=== PATIENT | male | born 1970 | race African-American/Black ===

== ENCOUNTER 2020-01-15 16:48 | Outpatient (CLI) | payer OTHER, BC, SELFPAY ==
[2020-01-15 18:08] LABS: Add Urine Microscopic? YES; Amorphous Sediment Urine Few; Appearance Urine Cloudy (Clear); Bacteria Urine Trace /hpf; Bilirubin Urine Negative (Negative); Blood Urine Negative (Negative); Calcium Oxalate Crystals Urine Present /hpf; Color Urine Yellow (Yellow); Glucose Urine UA Negative (Negative); Ketones Urine Negative (Negative); Leukocyte Esterase Ur Negative LEU/UL (NEGATIVE); Mucus Urine Rare /lpf; Nitrate Urine Negative (Negative); Protein Urine Negative (Negative); RBC Urine 0-2 /hpf (0-2); Specific Grav Ur 1.016 (1.001-1.035); Squamous Epithelial Cell Urine Rare /hpf (Few); Urobilinogen Urine Negative mg/dL (<2.0)
[2020-01-15 18:14] LABS: Alanine Aminotransferase 33 U/L (4-50); Albumin Level 4.4 g/dL (3.5-5.1); Alkaline Phosphatase 99 U/L (38-126); Aspartate Amino Transferase 28 U/L (17-59); Bilirubin,Total 0.3 mg/dL (0.2-1.3); Blood Urea Nitrogen 10 mg/dL (9-20); Carbon Dioxide 28 mmol/L (22-30); Chloride 100 mmol/L (98-107); Cholesterol 198 mg/dL (0-200); Estimated Glomerular Filt Rate > 60; Glucose 116 mg/dL (75-110); HDL Direct 38 mg/dL; Potassium 3.4 mmol/L (3.4-5.0); Sodium 138 mmol/L (137-145); Triglycerides 143 mg/dL (<150)
[2020-01-15 18:25] LABS: LDL Cholesterol Direct 130 mg/dL
[2020-01-15 18:45] LABS: Prostate Specific Antigen 0.6 ng/mL (< OR = 4.0)
== END 2020-01-15 16:49 | disposition home or self-care (01) ==
PROVIDERS: PCP Internal Medicine; Visit Provider Internal Medicine
DX: N40.2 Nodular prostate without lower urinary tract symptoms (principal); I10 Essential (primary) hypertension
CPT/HCPCS: 36415; 80053; 80061; 81001; 84153

== ENCOUNTER 2020-02-08 07:25 | Outpatient (CLI) | payer OTHER, BC, SELFPAY ==
--- NOTE | ~2020-02-08 | MR_ITS ---
EXAMINATION: MR MRCP wo/w con/w 3D wo ind DATE: 02/08/2020 08:59 INDICATION: Intraductal papillary mucinous neoplasm TECHNIQUE: Magnetic resonance imaging (MRI) of the abdomen was performed without and with intravenous contrast. Sequences included coronal T2-weighted SS-FSE ARC, coronal T2-weighted FS SS-FSE, coronal T2-weighted 2D FS FIESTA, Water:Coronal LAVA-Flex, sagittal T2-weighted SS-FSE ARC, axial SSFSE ARC, axial 3D DualEcho, axial DWI B=600, axial T1-weighted LAVA, FAT:Coronal LAVA-Flex, and coronal in and opposed phase LAVA-Flex. Thick-slab T2-weighted FRFSE-XL images were obtained for magnetic resonance cholangiopancreatography (MRCP). Maximum intensity projection 3-D reconstructions of the volumetric data were created by the technologist. Postcontrast sequences included a time course of axial T1-weig hted LAVA, FAT:Coronal LAVA-Flex, coronal in and opposed phase LAVA-Flex, and Water:Coronal LAVA-Flex . COMPARISON: Ultrasound dated 03/22/2018 CONTRAST: Multihance, 17 cc FINDINGS: ABDOMEN MRI: There is an 8 mm slightly T1 hypointense and T2 hyperintense lesion of liver segment V w hich demonstrates early arterial enhancement and persistent enhancement into the delayed postcontrast phases. No additional liver lesion is identified. The spleen, gallbladder, and adrenal glands are no rmal. Cysts of the kidneys measure up to 4.5 cm on the right. There are no pathologically enlarged ab dominal lymph nodes. There is a 4 mm T2 hyperintense lesion in the body of the pancreas without defin ite communication with the main pancreatic duct. No suspicious enhancement is identified. ABDOMEN MRCP: There is no intrahepatic or extrahepatic biliary dilatation. No stones or stricture tiffani ntified in the common bile duct. The pancreatic duct is normal in course and caliber. IMPRESSION: 1. 4 mm cystic lesion in the body of the pancreas, possibly a side branch intraductal papillary mucin ous neoplasm (IPMN). Recommend follow-up MRI without and with contrast in one year. 2. Stable lesion of the right hepatic lobe, likely a flash filling hemangioma or focal nodular hyperp lasia. Reviewed, dictated and finalized at location B. IMPRESSION: 1. 4 mm cystic lesion in the body of the pancreas, possibly a side branch intra ductal papillary mucinous neoplasm (IPMN). Recommend follow-up MRI without and with contrast in one year. 2. Stable lesion of the right hepatic lobe, likely a flash filling hemangioma o r focal nodular hyperplasia.
[2020-02-08 08:00] LABS: Estimated Glomerular Filt Rate > 60
== END 2020-02-08 07:26 | disposition home or self-care (01) ==
PROVIDERS: PCP Internal Medicine; Visit Provider Internal Medicine
DX: D13.6 Benign neoplasm of pancreas (principal)
CPT/HCPCS: 36415; 74183; 76376; A9577

== ENCOUNTER 2020-05-16 11:17 | Emergency (ER) | payer OTHER, BC, SELFPAY ==
--- NOTE | ~2020-05-16 | XR_ITS ---
EXAMINATION: XR ankle RT min 3V INDICATION: Right ankle pain TECHNIQUE: Four views of the right ankle are obtained. COMPARISON: 10/09/2007 FINDINGS: Bone alignment is normal. There is no fracture. Mild soft tissue swelling is seen posterior to the ankle. IMPRESSION: 1. No acute osseous abnormality. Reviewed, dictated and finalized at location A.
[2020-05-16 11:27] VITALS: BP 116/81; PULSE 90; RESP 16; TEMP 36; O2SAT 100
[2020-05-16 11:28] VITALS: BP 116/81; PULSE 90; RESP 16; TEMP 36; O2SAT 100
--- NOTE | 2020-05-16 11:44 | ED.LOWEXIN ---
HPI - Extremity Injury (Lower) General Chief Complaint: Extremity Injury, Lower Stated Complaint: rt achilles pain Time Seen by Provider: 05/16/20 11:44 Source: patient and RN notes reviewed Mode of arrival: ambulatory Limitations: no limitations History of Present Illness HPI Narrative: 49-year-old male presents with concern for pain to his posterior ankle, lower calf. Reports pain came on suddenly while he was playing pickle ball just prior to arrival. Reports he felt a pop in his ankle, and it felt like he got kicked in the calf. Reports pain with extension and flexion right foot. complaint: ankle injury Related Data Home Medications Medication Instructions Recorded Confirmed amlodipine 05/16/20 armodafinil mg PO 05/16/20 travoprost drp 05/16/20 Allergies Allergy/AdvReac Type Severity Reaction Status Date / Time No Known Allergies Allergy Mild Verified 10/09/07 08:01 Review of Systems Review of Systems: Narrative: CONSTITUTIONAL: Denies malaise, chills, sweats, or fever. CARDIOVASCULAR: Denies chest pain, palpitations, or edema. RESPIRATORY: Denies cough or dyspnea. SKIN: Denies skin, bruising, redness MUSCULOSKELETAL: Reports right lower calf pain, posterior ankle pain NEUROLOGIC: Denies numbness, weakness All systems reviewed & are unremarkable except as noted in HPI and below PMFSH Comments At time of signature, agree with nursing past medical, surgical, social and family history. There is no relevant family history pertinent to the presenting complaint Exam Narrative: Exam Narrative: GENERAL: Well-appearing, well-nourished, and in no acute distress. HEAD: Normocephalic, atraumatic. EYES: PERRLA, conjunctivae clear NECK: Supple. CHEST: Speaks in full sentences. No respiratory distress. HEART: Regular rate and rhythm. Normal and equal peripheral pulses. EXTREMITIES: Right ankle, foot, digits have normal sensation, limited range of motion. No edema or ecchymosis. Decreased strength with ankle flexion and extension. Normal sensation with sensitivity to light touch and pain. Lower posterior calf and ankle tenderness. No open wounds, no skin tenting, no devitalized tissue or atrophy, no trophic changes, no obvious deformity, alignment normal, nearby joints and structures intact. Distal pulses palpable and equal bilaterally, skin warm, dry, pink. Capillary refill less than 3 seconds. Wilkinson's test positive for possible Achilles tendon rupture SKIN: Warm, dry, no rash. NEURO: Alert and oriented x3. PSYCH: Normal mood and affect Course Course Emergency Course: Patient is aware of diagnosis, understands and agrees to treatment plan. Anticipatory guidance given. Patient agrees to follow-up as directed and is aware of reasons to seek care at the emergency department. Portions of this record may have been created with voice recognition software Vital Signs Vital signs: Vital Signs Temperature 96.8 F L 05/16/20 11:27 Pulse Rate 90 05/16/20 11:27 Respiratory Rate 16 05/16/20 11:27 Blood Pressure 116/81 05/16/20 11:27 Pulse Oximetry 100 05/16/20 11:27 Temperature 96.8 F L 05/16/20 11:28 Pulse Rate 90 05/16/20 11:28 Respiratory Rate 16 05/16/20 11:28 Blood Pressure 116/81 05/16/20 11:28 Pulse Oximetry 100 05/16/20 11:28 Reviewed. MDM - Extremity Injury (Lower) MDM Narrative Medical decision making narrative: Patients injury and pain is consistent with musculoskeletal etiology. No signs of neurological or vascular compromise on exam. Compartments and tissues are soft without signs of compartment syndrome. Pain is felt appropriate for further evaluation on an outpatient basis. Imaging Data My impression: Images reviewed, interpreted by radiologist, agree, see report. Radiologist's impression: EXAMINATION: XR ankle RT min 3V INDICATION: Right ankle pain TECHNIQUE: Four views of the right ankle are obtained. COMPARISON: 10/09/2007 FINDINGS: Bone alignment is nor
== END 2020-05-16 12:06 | disposition home or self-care (01) ==
PROVIDERS: Emergency Provider Nurse Practitioner; PCP Internal Medicine
DX: S86.001A Unspecified injury of right Achilles tendon, initial encounter (principal); X58.XXXA Exposure to other specified factors, initial encounter; I10 Essential (primary) hypertension; H40.9 Unspecified glaucoma
CPT/HCPCS: 73610; 99213; G0463

== ENCOUNTER → 2020-09-22 02:25 | Outpatient (CLI) | payer OTHER, BC, SELFPAY ==
[2020-09-22 22:47] LABS: SARS-CoV-2 RNA PCR Negative
== END ==
PROVIDERS: PCP Internal Medicine; Visit Provider Internal Medicine Gastroenterology
DX: Z01.812 Encounter for preprocedural laboratory examination (principal); Z20.822 Contact with and (suspected) exposure to COVID-19
CPT/HCPCS: C9803; U0003; U0005

== ENCOUNTER 2020-09-25 00:40 | Day surgery (SDC) | payer OTHER, BC, SELFPAY ==
[2020-08-18 16:17] VITALS: BMI 28.0
--- NOTE | 2020-08-25 13:38 | PC.NURSE ---
SPOKE WITH PATIENT REGARDING NEW TESTING DATES AND TIMES, REVIEWED HISTORY AND MEDICATIONS DONE FROM 6 DAYS AGO AND NO CHANGES MADE.
--- NOTE | 2020-09-17 08:49 | PC.NURSE ---
Patient states no changes in health history or medications. Patient aware of times changes.
[2020-09-25 09:59] VITALS: BP 115/99; PULSE 65; RESP 20; TEMP 36.1; O2SAT 95; BMI 30.8
[2020-09-25] MEDS: LACTATED RINGERS 1,000 ML 150 ML IV CONT (10:23)
--- NOTE | 2020-09-25 10:33 | WPDANESEPPF ---
Anes - Initial Pre Proc Eval Procedure: Operation Date: 09/25/20 11:15 Proposed Procedures p Screening Colonoscopy - Darrell Hugo MD Date/Time: 09/25/20 10:33 Surgeon: Darrell Hugo MD Pre Op Diagnosis: Neoplasm Screening Patient Data Age: 50 Gender: M Height: 5 ft 9 in Weight: 94.6 kg Last Vital Signs Temp 36.1 C L 09/25/20 09:59 Pulse 65 09/25/20 09:59 Resp 20 09/25/20 09:59 BP 115/99 H 09/25/20 09:59 Pulse Ox 95 09/25/20 09:59 Allergies Allergy/AdvReac Type Severity Reaction Status Date / Time No Known Allergies Allergy Mild Verified 09/25/20 09:58 Home Medications Medication Instructions Recorded Confirmed Type amlodipine 10 mg PO DAILY 05/16/20 08/25/20 History travoprost 1 drp OPHTHALMIC (EYE) DAILY 05/16/20 08/25/20 History ascorbic acid (vitamin C) 500 mg PO DAILY 09/17/20 09/17/20 History calcium citrate-vitamin D3 1 tablet PO DAILY 09/17/20 09/17/20 History [Calcitrate-Vitamin D] omega 2-sdz-qts-fish oil [Fish Oil] 1 cap PO DAILY 09/17/20 09/17/20 History Patient hx anesthesia problems: none Family hx anesthesia problems: none [facility] Past Medical History Medical History Hypertension MIRELLA (obstructive sleep apnea) Social History Social History Smoking status: Never smoker Alcohol intake: never Substance use type: does not use Living arrangements: with family Spiritual care concerns: No Anes - Eval Final PreProcedure Day of Procedure 09/25/20 10:33 Patient weight: obese Heart: regular rate and rhythm Lungs: clear to auscultation Airway: Mallampati scale class II Neurological: alert and oriented Last oral intake: >/= 8 hours ASA classification: III Emergent: no Anesthetic plan: proceed Anesthesia type and monitoring: general GIVS and standard monitoring Informed Consent: The patient's anesthetic plan and its attendant risks and benefits were discussed with the patient/family/POA. Questions were solicited and answers provided to the satisfaction of the patient/family/POA.
--- NOTE | 2020-09-25 11:04 | PM.HPGS ---
History of Present Illness History of Present Illness Consent: Risks, benefits, and alternatives have been discussed and questions answered. Patient agrees to proceed with procedure. Chief complaint: Neoplasm Screening Narrative: Jesse Magana is a 50 year old male here for first screening colonoscopy Review of Systems Constitutional: Constitutional: Denies headache(s) and Denies weakness Eyes: Eyes: Denies blurry vision ENT: Reports Normal hearing present, Denies headache(s) and Denies neck pain Cardiovascular: Cardiovascular: Denies chest pain and Denies dyspnea Respiratory: Respiratory: Denies dyspnea Gastrointestinal: Gastrointestinal: Reports no additional gastrointestinal complaints Genitourinary: Genitourinary: Denies dysuria Musculoskeletal: Musculoskeletal: Denies neck pain Integumentary/Breasts: Skin/Breast: Denies dry skin Neurologic: Reports Normal hearing present, Denies headache(s) and Denies weakness Psychiatric: Psychiatric: Denies anxiety Endocrine: Endocrine: Denies change in body appearance Hematologic/Lymphatic: Hematologic/Lymphatic: Denies easy bleeding Allergic/Immunologic: Allergic/Immunologic: Denies urticaria PMFSH Past Medical History Medical History Hypertension MIRELLA (obstructive sleep apnea) Social History Social History Smoking status: Never smoker Alcohol intake: never Substance use type: does not use Living arrangements: with family Spiritual care concerns: No Meds Home Medications and Allergies Home Medications Medication Instructions Recorded Confirmed Type amlodipine 10 mg PO DAILY 05/16/20 08/25/20 History travoprost 1 drp OPHTHALMIC (EYE) DAILY 05/16/20 08/25/20 History ascorbic acid (vitamin C) 500 mg PO DAILY 09/17/20 09/17/20 History calcium citrate-vitamin D3 1 tablet PO DAILY 09/17/20 09/17/20 History [Calcitrate-Vitamin D] omega 8-noi-wdx-fish oil [Fish Oil] 1 cap PO DAILY 09/17/20 09/17/20 History Allergies Allergy/AdvReac Type Severity Reaction Status Date / Time No Known Allergies Allergy Mild Verified 09/25/20 09:58 Vital Signs Vital Signs - 24 hr 09/25/20 09:59 Temperature 97 F L Pulse Rate 65 Respiratory Rate 20 Blood Pressure 115/99 H Pulse Oximetry 95 Exam Const: General: comfortable and no acute distress HENMT: General nose exam: Normal nares present Eyes: General: appearance normal, both eyes and all related structures Neck: Neck: no JVD Resp: Auscultation: clear to auscultation bilaterally Cardio: Rate: regular rate Rhythm: regular rhythm GI: Inspection: non-distended GI Palp: Yes Soft to palpation Skin: General skin exam: normal color Neuro: General: gait normal Speech: normal speech Extrem: General: normal to inspection Psych: Mental Status: mental status grossly normal Assessment and Plan Assessment and plan (1) Colon cancer screening: Code(s): Z12.11 - Encounter for screening for malignant neoplasm of colon Status: Acute Assessment and Plan: proceed with colonoscopy
[2020-09-25 11:20] VITALS: BP 120/75; PULSE 77; RESP 20; O2SAT 96
[2020-09-25 11:30] VITALS: BP 115/76; PULSE 64; RESP 15; O2SAT 97
[2020-09-25 11:40] VITALS: BP 119/74; PULSE 67; RESP 19; O2SAT 100
== END 2020-09-25 12:15 | disposition home or self-care (01) ==
PROVIDERS: PCP Internal Medicine; Visit Provider Internal Medicine Gastroenterology
PROC: 0DJD8ZZ Inspection of Lower Intestinal Tract, Via Natural or Artificial Opening Endoscopic (ICD-10-PCS; CPT 45378; principal; 2020-09-25 11:15)
DX: Z12.11 Encounter for screening for malignant neoplasm of colon (principal); I10 Essential (primary) hypertension; G47.33 Obstructive sleep apnea (adult) (pediatric)
CPT/HCPCS: 45378; J2704; J7120

== ENCOUNTER 2021-03-25 06:37 | Outpatient (CLI) | payer OTHER, BC, SELFPAY ==
--- NOTE | ~2021-03-25 | MR_ITS ---
EXAMINATION: MR MRCP wo/w con/w 3D wo ind DATE: 03/25/2021 07:55 INDICATION: Intraductal papillary mucinous neoplasm TECHNIQUE: Magnetic resonance imaging (MRI) of the abdomen was performed without and with intravenous contrast. Sequences included coronal T2-weighted SS-FSE ARC, coronal T2-weighted FS SS-FSE, coronal T2-weighted 2D FS FIESTA, Water:Coronal LAVA-Flex, sagittal T2-weighted SS-FSE ARC, axial SSFSE ARC, axial 3D DualEcho, axial DWI B=600, axial T1-weighted LAVA, FAT:Coronal LAVA-Flex, and coronal in and opposed phase LAVA-Flex. Thick-slab T2-weighted FRFSE-XL images were obtained for magnetic resonance cholangiopancreatography (MRCP). Maximum intensity projection 3-D reconstructions of the volumetric data were created by the technologist. Postcontrast sequences included a time course of axial T1-weig hted LAVA, FAT:Coronal LAVA-Flex, coronal in and opposed phase LAVA-Flex, and Water:Coronal LAVA-Flex . COMPARISON: 02/08/2020 CONTRAST: Multihance, 18 cc FINDINGS: ABDOMEN MRI: The spleen, gallbladder, and adrenal glands are normal. There is a 1.7 cm T1 isointense, T2 isointense lesion in liver segment V which demonstrates early enhancement and is isointense on th e portal venous phase and delayed phase. Findings are consistent with focal nodular hyperplasia or fl isaiah filling hemangioma. There are multiple simple cysts of the kidneys which measure up to 4.7 cm on the right. Hemorrhagic cysts of the left kidney measure up to 9 mm. There are no pathologically enlar ged abdominal lymph nodes. There is a 2 mm T2 hyperintense lesion in the body of the pancreas without definite communication with the main pancreatic duct which is decreased in size compared to the prio r examination. This is best appreciated on the 3-D coronal MRCP images. ABDOMEN MRCP: There is no intrahepatic or extrahepatic biliary dilatation. No biliary stones or stric ture are identified. The pancreatic duct is normal in course and caliber. IMPRESSION: 1. Cystic lesion in the body of the pancreas with interval decrease in size, most likely benign intra ductal papillary mucinous neoplasm (IPMN). Reviewed, dictated and finalized at location B. IMPRESSION: 1. Cystic lesion in the body of the pancreas with interval decrease in size, mo st likely benign intraductal papillary mucinous neoplasm (IPMN).
[2021-03-25 07:11] LABS: Estimated Glomerular Filt Rate > 60
[2021-03-25 08:54] LABS: Add Urine Microscopic? YES; Appearance Urine Clear (Clear); Bilirubin Urine Negative (Negative); Blood Urine Negative (Negative); Color Urine Yellow (Yellow); Glucose Urine UA Negative (Negative); Ketones Urine Negative (Negative); Leukocyte Esterase Ur Negative LEU/UL (NEGATIVE); Mucus Urine Few /lpf; Nitrate Urine Negative (Negative); Protein Urine Negative (Negative); Squamous Epithelial Cell Urine Rare /hpf (Few); Urobilinogen Urine Negative mg/dL (<2.0); WBC Urine 0-3 /hpf (0-3)
[2021-03-25 09:02] LABS: Alanine Aminotransferase 40 U/L (4-50); Alkaline Phosphatase 78 U/L (38-126); Anion Gap 6 mmol/L (8-16); Aspartate Amino Transferase 49 U/L (17-59); Bilirubin,Total 0.8 mg/dL (0.2-1.3); Blood Urea Nitrogen 12 mg/dL (9-20); Calcium 9.1 mg/dL (8.4-10.2); Carbon Dioxide 30 mmol/L (22-30); Chloride 103 mmol/L (98-107); Cholesterol 169 mg/dL (0-200); Estimated Glomerular Filt Rate > 60; Glucose 99 mg/dL (65-110); HDL Direct 41 mg/dL; Potassium 3.6 mmol/L (3.4-5.0); Sodium 139 mmol/L (137-145); Triglycerides 85 mg/dL (<150)
[2021-03-25 09:12] LABS: LDL Cholesterol Direct 95 mg/dL
[2021-03-25 09:32] LABS: Prostate Specific Antigen 0.8 ng/mL (< OR = 4.0)
[2021-03-25 09:48] LABS: Specific Grav Ur 1.041 (1.001-1.035)
== END 2021-03-25 06:38 | disposition home or self-care (01) ==
PROVIDERS: PCP Internal Medicine; Visit Provider Internal Medicine
DX: Z12.5 Encounter for screening for malignant neoplasm of prostate (principal); I10 Essential (primary) hypertension; K86.2 Cyst of pancreas; D49.0 Neoplasm of unspecified behavior of digestive system
CPT/HCPCS: 74183; 76376; 80053; 80061; 81001; 84153; A9577; G0103

== ENCOUNTER 2021-04-03 08:28 | Emergency (ER) | payer OTHER, BC, SELFPAY ==
[2021-04-03 08:37] VITALS: BP 127/79; PULSE 71; RESP 16; TEMP 36.3; O2SAT 100
--- NOTE | 2021-04-03 08:53 | ED.URI ---
HPI - URI/Sore Throat General Chief Complaint: Upper Respiratory Infection Stated Complaint: Sore Throat Time Seen by Provider: 04/03/21 08:55 Source: patient Mode of arrival: ambulatory Limitations: no limitations History of Present Illness HPI Narrative: Jesse Magana is a 50 yo male with a PMH of HTN, high cholesterol, glaucoma, comes to [facility] with sore throat that started 2 days ago. His daughter has been diagnosed with strep Related Data Home Medications Medication Instructions Recorded Confirmed amlodipine 10 mg PO DAILY 05/16/20 08/25/20 travoprost 1 drp OPHTHALMIC (EYE) DAILY 05/16/20 08/25/20 ascorbic acid (vitamin C) 500 mg PO DAILY 09/17/20 09/17/20 calcium citrate-vitamin D3 1 tablet PO DAILY 09/17/20 09/17/20 [Calcitrate-Vitamin D] omega 1-qke-ora-fish oil [Fish Oil] 1 cap PO DAILY 09/17/20 09/17/20 Allergies Allergy/AdvReac Type Severity Reaction Status Date / Time No Known Allergies Allergy Mild Verified 09/25/20 09:58 Review of Systems Review of Systems: CONSTITUTIONAL: Denies fever, chills, sweats. EYES: Denies visual changes, redness, discharge. ENT: Denies rhinorrhea, congestion, has sore throat, otalgia. CARDIOVASCULAR: Denies chest pain, palpitations, edema. RESPIRATORY: Denies dyspnea, wheezing, cough GASTROINTESTINAL: Denies abdominal pain, nausea, vomiting, diarrhea. GENITOURINARY: Denies dysuria, hematuria, abnormal discharge SKIN: Denies rash or itching. NEUROLOGIC: Denies numbness, or focal weakness. PSYCHIATRIC: Denies anxiety or depression. PMFSH Past Medical History Medical History (Updated 04/03/21 @ 09:07 by Rae Scott CNP) Colon cancer screening Glaucoma High cholesterol Hypertension MIRELLA (obstructive sleep apnea) Social History Social History Smoking status: Never smoker Alcohol intake: never Substance use type: does not use Spiritual care concerns: No Comments At time of signature, I agree with nursing past medical, surgical, social and family history. There is no relevant family history pertinent to the presenting complaint. Exam Narrative: GENERAL: This is a well-nourished, well-developed patient, in mild distress. HEAD: normocephalic, atraumatic. EYES: Sclera clear/white. Vision is grossly intact. EARS: External ears normal, Hearing grossly intact. NOSE: External nose normal without nasal discharge, nares without redness, no rhinorrhea. THROAT: Mucous membranes moist, posterior pharynx erythema with swelling on the left NECK: Neck supple, mild tender CARDIOVASCULAR: Regular rate and rhythm without murmurs, gallops, or rubs. RESPIRATORY: Clear to auscultation. Breath sounds equal bilaterally. No wheezes, rales, or rhonchi. GASTROINTESTINAL: Abdomen soft, SKIN: warm, intact with no suspicious lesions or rash, good texture and turgor. NEURO: awake, alert, and oriented to person, place and time. There were no obvious focal neurologic abnormalities. Steady gait EXTREMITIES: Normal range of motion. BACK: Nontender without deformity Course Course Emergency Course: Comes to urgent care today with sore throat x2 days Rapid strep is negative; sent for culture Given prednisone and amoxicillin Practice good handwashing and do not share utensils or towels for the first 24 hours of medication Vital Signs Vital signs: Vital Signs Temperature 97.3 F L 04/03/21 08:37 Pulse Rate 71 04/03/21 08:37 Respiratory Rate 16 04/03/21 08:37 Blood Pressure 127/79 04/03/21 08:37 Pulse Oximetry 100 04/03/21 08:37 Temperature 97.3 F L 04/03/21 08:37 Pulse Rate 71 04/03/21 08:37 Respiratory Rate 16 04/03/21 08:37 Blood Pressure 127/79 04/03/21 08:37 Pulse Oximetry 100 04/03/21 08:37 MDM - URI/Sore Throat Differential Diagnosis Differential diagnosis: Likely upper respiratory infection, bronchitis, influenza, pharyngitis and other Lab Data Labs: Strep Sc
== END 2021-04-03 09:13 | disposition home or self-care (01) ==
PROVIDERS: Emergency Provider Nurse Practitioner; PCP Internal Medicine
DX: J02.9 Acute pharyngitis, unspecified (principal); I10 Essential (primary) hypertension
CPT/HCPCS: 87081; 87880; 99213; G0463

== ENCOUNTER 2021-04-16 07:56 | Outpatient (CLI) | payer OTHER, BC, SELFPAY ==
[2021-04-16 08:50] LABS: Add Urine Microscopic? NO; Appearance Urine Clear (Clear); Bilirubin Urine Negative (Negative); Blood Urine Negative (Negative); Color Urine Yellow (Yellow); Glucose Urine UA Negative (Negative); Ketones Urine Negative (Negative); Leukocyte Esterase Ur Negative LEU/UL (Negative); Nitrate Urine Negative (Negative); Protein Urine Negative (Negative); Specific Grav Ur 1.016 (1.001-1.035); Urobilinogen Urine Negative mg/dL (<2.0)
== END 2021-04-16 07:57 | disposition home or self-care (01) ==
PROVIDERS: PCP Internal Medicine; Visit Provider Internal Medicine
DX: R31.29 Other microscopic hematuria (principal)
CPT/HCPCS: 81003

== ENCOUNTER 2021-09-25 08:09 | Emergency (ER) | payer OTHER, BC, SELFPAY ==
--- NOTE | ~2021-09-25 | XR_ITS ---
EXAMINATION: XR foot RT 2V DATE: 09/25/2021 08:41 INDICATION: Right Achilles tendon injury. TECHNIQUE: 2 views of right foot were obtained. COMPARISON: Right ankle radiographs 05/16/2020 FINDINGS: Bone alignment is normal. No fracture. There is mild osteoarthritis of first metatarsophala ngeal joint and some of the interphalangeal joints and midfoot joints. There is an enthesophyte at pl gallo aspect of calcaneal tuberosity. There is soft tissue swelling in the area of Achilles tendon. IMPRESSION: 1. Soft tissue swelling in the area of Achilles tendon. 2. Mild polyarticular osteoarthritis. Reviewed, dictated and finalized at location A. ER SALVAGER
--- NOTE | 2021-09-25 08:20 | ED.LOWEXIN ---
HPI - Extremity Injury (Lower) General Chief Complaint: Extremity Injury, Lower Stated Complaint: right leg pain Time Seen by Provider: 09/25/21 08:15 Source: patient and RN notes reviewed History of Present Illness HPI Narrative: Patient is a 51-year-old male who presents the urgent care with complaints of right Achilles pain. Patient states that he has had a mild increase in swelling. 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 Patient states that he had surgery approximately 1 year ago and has not had much issue in the last 6 months. States that it does not feel like it did when he first ruptured the Achilles . Patient has not done anything [id number] for his pain. Patient ambulates without difficulty. No other acute complaints. No acute distress noted. Patient aware of the plan of care. Some parts of this dictation were generated by voice recognition software and may contain typographical and/or grammatical inaccuracies. Related Data Home Medications Medication Instructions Recorded Confirmed amlodipine 10 mg PO DAILY 05/16/20 09/25/21 travoprost 1 drp OPHTHALMIC (EYE) DAILY 05/16/20 09/25/21 ascorbic acid (vitamin C) 500 mg PO DAILY 09/17/20 09/25/21 calcium citrate-vitamin D3 1 tablet PO DAILY 09/17/20 09/25/21 [Calcitrate-Vitamin D] omega 0-cps-hbb-fish oil [Fish Oil] 1 cap PO DAILY 09/17/20 09/25/21 hydrochlorothiazide 25 mg PO DAILY 09/25/21 09/25/21 Allergies Allergy/AdvReac Type Severity Reaction Status Date / Time No Known Allergies Allergy Mild Verified 09/25/21 08:33 Review of Systems Review of Systems: CONSTITUTIONAL: Denies fever, chills, or sweats. EYES: Denies visual changes, redness, or discharge. ENT: Denies rhinorrhea, congestion, sore throat, or otalgia. CARDIOVASCULAR: Denies chest pain, palpitations, or edema. RESPIRATORY: Denies cough or dyspnea. GASTROINTESTINAL: Denies abdominal pain, nausea, vomiting, or diarrhea. GENITOURINARY: Denies dysuria or hematuria. SKIN: Denies rash or itching. MUSCULOSKELETAL: Reports of right Achilles pain NEUROLOGIC: Denies headache, numbness, or weakness. All other systems reviewed are negative, except as documented in HPI. [facility] Past Medical History Medical History (Updated 09/25/21 @ 09:12 by DEEPALI Omalley) Colon cancer screening Glaucoma High cholesterol Hypertension MIRELLA (obstructive sleep apnea) Social History Social History Smoking status: Never smoker Alcohol intake: never Substance use type: does not use Spiritual care concerns: No Comments At the time of my signature, I reviewed and agree with the nursing past medical, surgical, social, and family history. There is no relevant family history pertinent to the patient complaint. Exam Narrative: GENERAL: This is a well-nourished, well-developed patient, in no apparent distress. HEAD: normocephalic, atraumatic. EYES: PERRL. Sclera clear/white. Vision is grossly intact. EARS: External ears normal NOSE: External nose normal with no obvious nasal discharge, nares without redness, no rhinorrhea. THROAT: Mucous membranes moist NECK: Neck supple, non-tender without lymphadenopathy, masses or thyromegaly. CARDIOVASCULAR: Regular rate and rhythm without murmurs, gallops, or rubs. RESPIRATORY: Clear to auscultation. Breath sounds equal bilaterally. No wheezes, rales, or rhonchi. SKIN: warm, intact with no suspicious lesions or rash, good texture and turgor. NEURO: awake, alert, and oriented to person, place and time. There were no obvious focal neurologic abnormalities. EXTREMITIES: Mild edema to the right Achilles region. Range of motion to right lower extremity within normal limits. Flexion within normal limits. Positive strong right pedal pulse with capillary refill less than 2 seconds. Course Course Level of Care: Expr
[2021-09-25 08:21] VITALS: BP 132/94; PULSE 82; RESP 16; TEMP 36.4; O2SAT 99
[2021-09-25 08:22] VITALS: BP 132/94; PULSE 82; RESP 16; TEMP 36.4; O2SAT 99
== END 2021-09-25 09:15 | disposition home or self-care (01) ==
PROVIDERS: Emergency Provider Nurse Practitioner Family
DX: M77.51 Other enthesopathy of right foot and ankle (principal); H40.9 Unspecified glaucoma; E78.00 Pure hypercholesterolemia, unspecified; I10 Essential (primary) hypertension; G47.33 Obstructive sleep apnea (adult) (pediatric)
CPT/HCPCS: 73620; 99213; G0463

== ENCOUNTER 2022-12-27 14:03 | Outpatient (CLI) | payer OTHER, BC, SELFPAY ==
[2022-12-27 14:40] LABS: Appearance Urine Clear (Clear); Bilirubin Urine Negative (Negative); Blood Urine Negative (Negative); Color Urine Yellow (Yellow); Glucose Urine UA Negative (Negative); Ketones Urine Negative (Negative); Leukocyte Esterase Ur Negative LEU/UL (NEGATIVE); Nitrate Urine Negative (Negative); Protein Urine Negative (Negative); Specific Grav Ur 1.024 (1.001-1.035); pH Urine 5.5 (5.0-9.0)
[2022-12-27 14:45] LABS: Add Urine Microscopic? NO
[2022-12-27 14:55] LABS: Alanine Aminotransferase 34 U/L (6-50); Albumin Level 4.5 g/dL (3.5-5.1); Alkaline Phosphatase 83 U/L (38-126); Anion Gap 9 mmol/L (8-16); Aspartate Amino Transferase 32 U/L (17-59); Bilirubin,Total 0.5 mg/dL (0.2-1.3); Blood Urea Nitrogen 16 mg/dL (9-20); Calcium 9.1 mg/dL (8.4-10.2); Carbon Dioxide 28 mmol/L (22-30); Chloride 101 mmol/L (98-107); Cholesterol 181 mg/dL (0-200); Estimated Glomerular Filt Rate > 60; Glucose 133 mg/dL (65-110); HDL Direct 39 mg/dL; Potassium 3.3 mmol/L (3.4-5.0); Sodium 138 mmol/L (137-145); Triglycerides 116 mg/dL (<150)
[2022-12-27 15:05] LABS: LDL Cholesterol Direct 114 mg/dL
[2022-12-27 15:25] LABS: Prostate Specific Antigen 0.9 ng/mL (< OR = 4.0)
== END 2022-12-27 14:04 | disposition home or self-care (01) ==
LOC: ANHLAB 14:07
PROVIDERS: Visit Provider Internal Medicine
DX: Z00.00 Encounter for general adult medical examination without abnormal findings (principal); I10 Essential (primary) hypertension; Z12.5 Encounter for screening for malignant neoplasm of prostate; E78.5 Hyperlipidemia, unspecified
CPT/HCPCS: 36415; 80053; 80061; 81003; 84153; G0103

== ENCOUNTER 2023-10-09 07:35 | Outpatient (CLI) | payer OTHER, BC, SELFPAY ==
[2023-10-09 08:16] LABS: Alanine Aminotransferase 25 U/L (6-50); Albumin Level 4.3 g/dL (3.5-5.1); Alkaline Phosphatase 81 U/L (38-126); Anion Gap 3 mmol/L (8-16); Aspartate Amino Transferase 27 U/L (17-59); Bilirubin,Total 1.1 mg/dL (0.2-1.3); Blood Urea Nitrogen 13 mg/dL (9-20); Calcium 9.6 mg/dL (8.4-10.2); Carbon Dioxide 33 mmol/L (22-30); Chloride 102 mmol/L (98-107); Cholesterol 162 mg/dL (0-200); Estimated Glomerular Filt Rate > 60; Glucose 117 mg/dL (65-110); HDL Direct 36 mg/dL; Potassium 3.5 mmol/L (3.4-5.0); Sodium 138 mmol/L (137-145); Triglycerides 54 mg/dL (<150)
[2023-10-09 08:23] LABS: Hemoglobin A1C 5.9 % (<5.7)
[2023-10-09 08:26] LABS: LDL Cholesterol Direct 114 mg/dL
== END 2023-10-09 07:36 | disposition home or self-care (01) ==
LOC: ANHLAB 07:38
PROVIDERS: PCP Internal Medicine; Visit Provider Internal Medicine
DX: E87.6 Hypokalemia (principal); R73.9 Hyperglycemia, unspecified; E78.5 Hyperlipidemia, unspecified
CPT/HCPCS: 36415; 80053; 80061; 83036

== ENCOUNTER 2023-10-16 06:44 | Outpatient (CLI) | payer OTHER, BC, SELFPAY ==
--- NOTE | ~2023-10-16 | MR_ITS ---
EXAMINATION: MR MRCP wo/w con/w 3D wo ind DATE: 10/16/2023 11:22 INDICATION: Cystic lesion of body of pancreas. TECHNIQUE: Magnetic resonance imaging (MRI) of the abdomen was performed without and with 17 mL Multi Roxanne intravenous contrast. Sequences included coronal T2-weighted FS FSE, coronal T2-weighted FSE, a xial T1-weighted LAVA, coronal FS FIESTA, axial dual-echo T1-weighted SPGR, coronal lava-FLEX, sagitt al T2-weighted FSE, axial T2-weighted FSE, and axial DWI. Thick-slab T2-weighted FSE images were obta ined for magnetic resonance cholangiopancreatography (MRCP). Maximum intensity projection 3-D reconst ructions of the volumetric data were created by the technologist. Postcontrast sequences included cor onal LAVA-flex and time course of axial T1-weighted LAVA. COMPARISON: MRCP 03/26/2021, 02/08/2020 FINDINGS: ABDOMEN MRI: There is diffuse hepatic steatosis. The gallbladder is normal in size. The spleen, pancr eas, and adrenal glands are normal. There are cysts in the kidneys measuring up to 5.5 cm on the righ t. There are no dilated loops of bowel. There are no pathologically enlarged lymph nodes. There is no free intraperitoneal fluid. ABDOMEN MRCP: The common duct is normal and measures 3 mm. No choledocholithiasis. IMPRESSION: 1. Normal pancreas. 2. Diffuse hepatic steatosis. Reviewed, dictated and finalized at location A.
== END 2023-10-16 06:45 | disposition home or self-care (01) ==
PROVIDERS: PCP Internal Medicine; Visit Provider Internal Medicine
DX: D13.6 Benign neoplasm of pancreas (principal); K76.0 Fatty (change of) liver, not elsewhere classified
CPT/HCPCS: 74183; 76376; A9577

== ENCOUNTER 2024-06-27 08:19 | Outpatient (CLI) | payer OTHER, BC, SELFPAY ==
[2024-06-27 08:51] LABS: Basophils Percent Auto 0.5 % (0.2-1.2); Eosinophils Absolute Auto 0.1 K/mm3 (0-0.3); Eosinophils Percent Auto 0.9 % (0-4.4); Hematocrit 46.9 % (42.0-52.0); Hemoglobin 15.3 g/dL (14.0-18.0); Immature Granulocyte Absolute 0.02 K/mm3 (0.00-0.031); Immature Granulocyte Percent A 0.2 % (0-0.5); Lymphocytes Absolute Auto 2.47 K/mm3 (0.9-3.2); Lymphocytes Percent Auto 30.5 % (18.3-44.2); Mean Corpuscular HGB Conc 32.6 g/dl (32-36); Mean Corpuscular Hemoglobin 32.1 pg (26-34); Mean Corpuscular Volume 98.5 fl (80-100); Mean Platelet Volume 10.7 fl (7.4-10.4); Monocytes Absolute Auto 0.6 K/mm3 (0.1-0.6); Neutrophils Absolute Auto 4.9 K/mm3 (1.3-6.7); Neutrophils Percent Auto 60.9 % (45.5-73.1); Platelet Count Result 284 k/mm3 (150-375); Red Blood Count 4.76 M/mm3 (4.6-6.20); Red Cell Distribution Width 12.5 % (11.5-14.5); White Blood Count 8.1 K/mm3 (4.5-10.0)
[2024-06-27 09:09] LABS: Alanine Aminotransferase 37 U/L (6-50); Albumin Level 4.5 g/dL (3.5-5.1); Alkaline Phosphatase 85 U/L (38-126); Anion Gap 4 mmol/L (4-12); Aspartate Amino Transferase 36 U/L (17-59); Bilirubin,Total 0.8 mg/dL (0.2-1.3); Blood Urea Nitrogen 15 mg/dL (9-20); Calcium 9.7 mg/dL (8.4-10.2); Carbon Dioxide 34 mmol/L (22-30); Chloride 101 mmol/L (98-107); Estimated Glomerular Filt Rate > 60; Glucose 120 mg/dL (65-110); Potassium 3.6 mmol/L (3.4-5.0); Sodium 139 mmol/L (137-145)
[2024-06-27 09:39] LABS: Prostate Specific Antigen 1.4 ng/mL (< OR = 4.0)
[2024-06-27 11:21] LABS: Hepatitis B Surface Anti Res Negative; Hepatitis C Virus Antibody Negative (Negative)
[2024-06-29 03:03] LABS: Creatinine, Random Urine 157 mg/dL (20-320); Total Prot/Creat ratio mg/mg 0.089 (0.025-0.148); Total Protein/Creatinine Ratio 89 mg/g creat (25-148)
[2024-06-29 06:33] LABS: Protein, Total 8.1 g/dL (6.1-8.1)
[2024-07-04 21:34] LABS: Albumin 4.3 g/dL (3.8-4.8); Alpha 1 Globulin 0.3 g/dL (0.2-0.3); Alpha 2 Globulin 0.6 g/dL (0.5-0.9); Beta 1 Globulin 0.7 g/dL (0.4-0.6); Gamma Globulin 1.9 g/dL (0.8-1.7)
== END 2024-06-27 08:20 | disposition home or self-care (01) ==
LOC: ANHLAB 08:22
PROVIDERS: PCP Internal Medicine; Visit Provider Internal Medicine
DX: Z00.00 Encounter for general adult medical examination without abnormal findings (principal); Z13.29 Encounter for screening for other suspected endocrine disorder; Z13.0 Encounter for screening for diseases of the blood and blood-forming organs and certain disorders involving the immune mechanism; Z13.228 Encounter for screening for other metabolic disorders; Z12.5 Encounter for screening for malignant neoplasm of prostate; Z11.59 Encounter for screening for other viral diseases; K76.0 Fatty (change of) liver, not elsewhere classified
CPT/HCPCS: 36415; 80053; 82570; 84153; 84155; 84156; 84165; 84166; 85025; 86706; 86803; G0103

== ENCOUNTER 2025-07-16 08:50 | Outpatient (CLI) | payer OTHER, BC, SELFPAY ==
--- OUTSIDE RECORDS SUMMARY | 2025-07-16 09:01 | XMS_ITS | Clinical Summary ---
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 Name Role Phone Unavailable Primary Care Provider Unavailabl e Social History Tobacco Use Types Packs/Day Years Used Date Smoking Tobacco: Never Assessed Sex and Gender Information Value Date Recorded Sex Assigned at Not on file Legal Sex Male 7:54 PM CDT Gender Identity Not on file Sexual Orientation Not on file Plan of Treatment Health Maintenance Due Date Last Done Comments Hepatitis C Virus (HCV) Screening 1970 TdaP Immunization 1970 Hepatitis B Immunization (1 of 3 - 19+ 3-dose series) 1989 Cologuard 2015 Colonoscopy 2015 Colorectal Cancer Screening 2015 Immunochemical Fecal Occult Blood 2015 Pneumococcal Immunization (5 0+ years) (1 of 1 - PCV) 2020 Zoster Immunization (1 of 2) 2020 Influenza Immunization (#1) 2025 SARS-COV-2 Immunization ( season) 2025 06/03/2021, 10/02/2020, 09/04/2020 Respiratory Syncytial Virus (RSV) Immunization (Adult) (1 - 1-dose 75+ series) 2045 Human Papillomavirus (HPV) Immunization Aged Out No longer eligible b ased on patient's age to complete this topic Meningococcal Immunization (ACWY) Aged Out No longer eligible b ased on patient's age to complete this topic Rotavirus Immunization Aged Out No lo nger eligible based on patient's age to complete this topic Insurance [employer] on file
--- OUTSIDE RECORDS SUMMARY | 2025-07-16 09:01 | XMS_ITS | Clinical Summary ---
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 Name Role Phone Brenton Romero MD Primary Care Provider [phone] Anjelica Yepez MD Unavailable Allergies No known active allergies Medications vitamin E (AQUASOL E) 100 unit capsule Take 1 capsule (100 Units total) by mouth daily Active cholecalcifero l (VITAMIN D-3) 2000 unit capsule Take 1 capsule (2,000 Units total) by mouth daily 30 capsule 0 Active latanoprost (XALATAN) 0.005 % ophthalmic solution Administer 1 drop into both eyes nightly 2 Active timolol (TIMOPTIC) 0.5 % ophthalmic solution Administer 1 drop into both eyes daily 3 Active triamcinolone (KENALOG) 0.1 % cream APPLY TO THE AFFECTED AREAS OF ECZEMA FOR UP TO TWO CONSECUTIVE WEEKS USING ONE TO TWO GRAMS PER APPLICATION IN THE MORNING. TAKE A SMALL BREAK AND THEN USE NEEDED FOR FLARES THEREAFTER. AVOID THE FACE, AXILLA AND GROIN. 5 Active amLODIPine (NORVASC) 5 mg tablet Take 1 tablet (5 mg total) by mouth daily 90 tablet 1 5 Active ascorbic acid (ascorbic acid with carmen hips) 500 mg tablet,chewabl e Active hydroCHLOROthi azide (HYDRODIURIL) 25 mg tablet Take 0.5 tablets (12.5 mg total) by mouth daily 45 tablet 5 Active hydroCHLOROthi azide (HYDRODIURIL) 25 mg tablet Take 0.5 tablets (12.5 mg total) by mouth daily 5 06/18/20 25 Discontin ued(Reord er) Active Problems Problem Noted Date Diagnosed Date Encounter for screening colonoscopy 10/02/2024 Nontraumatic tear of left rotator cuff Arthritis of left acromioclavicular joint 2023 Impingement syndrome of left shoulder 02/06/2024 MIRELLA (obstructive sleep apnea) 01/02/2023 Achilles rupture, right 05/21/2020 Overview (05/21/2020): Added automatically from request for surgery [id number] Closed avulsion fracture of right hip 04/11/2019 Hypertension 04/28/2017 Overview (10/27/2017): Impression: start amlo 5 f/u 1m with bp log. Prehypertension 04/05/2017 Overview (10/27/2017): Impression: Mild BP elevation. We discussed options. Counselled on regular exercise, low salt diet/DASH diet. Nuvigil may be contributing to BP elevation. Recheck 3 months. Increased frequency of urination 04/05/2017 Glaucoma 01/01/2015 Narcoleptic syndrome 08/20/2014 Overview (10/27/2017): Impression: Chronic. I am not familiar in the DX/management of this dosorder. Refer to Sleep medicaine for further evalaution/TX. Consider alternative to nuvigil given BP elevation. Encounters Date Type Department Care Team Description 07/08/2025 Telephone [facility] Gastroenterology at [address] [place] [address] Sherri Marcum 06/18/2025 Telephone [facility] Primary Care at [address] [address] Radha Gabriel MA 05/19/2025 8:30 AM TWIST MAKER Immunization [facility] Convenient Care at [address] [address] 04/16/2025 Telephone [facility] Gastroenterology at [address] [place] [address] Yvette Mcbride Prep Instructions from Last 3 Months Immunizations Immunization Administration Dates Next Due Flucelvax Influenza Quad 03/29/2022 Hep A, Unspecified 01/18/2017 Influenza, Quadrivalent, Shante l Culture-based MDCK, Antibiotic Free, Intramuscular 05/04/2021 Influenza, Quadrivalent, Spl it, Preservative Free, Intramuscular 05/13/2023 Influenza, Trivalent, Preser vative Free, Intramuscular 05/19/2025 Influenza, Trivalent, Split, Preservative Free, Intradermal 04/28/2017 Influenza, Unspecified 05/18/2024,2022(Deferred: Patient Refused),07/18/2021(Deferred: Patient Refused),07/18/2020(Deferred: Patient Refused),04/28/2020 Moderna SARS-CoV-2 Monovalen t Vaccination (12+ YRS) 10/02/2020,09/04/2020 Sars-CoV-2, Unspecified 12/14/2020,11/13/2020 Tdap 02/23/2021,07/17/2011 Surgical History Surgery Date Site/Laterality Comments PA ARTHROSCOPY KNEE DIAGNOSTIC W/WO SYNOVIAL BX SPX Arthroscopy Knee Left - (Added by TW Conv) KNEE SURGERY 07/17/1999 - 07/16/2000 Left FEMUR SURGERY 07/17/1980 - 07/16/1981 Right ACHILLES TENDON REPAIR Medical History Medical History Date Comments Glaucoma Motion sickness HTN (hypertension) MIRELLA (obstructive sleep apnea) Family History Medical History Relation Name Comments Alcohol abuse Father Family history of alcoholism - (Added by TW Conv) Bleeding Disorder Father Hypertension Father Diabetes Maternal Grandmother Family history of diabetes mellitus - (Added by TW Conv) Glaucoma Maternal Grandmother Family history of glaucoma - (Added by TW Conv) Cancer Mother Diabetes Mother Family history of diabetes mellitus - (Added by TW Conv) Glaucoma Mother Family history of glaucoma - (Added by TW Conv) Hypertension Mother Family history of hypertension - (Added by TW Conv) Diabetes Mother's Brother 1 Family hi story of diabetes mellitus - (Added by Conv) Hypertension Mother's Brother 2 Family hi story of hypertension - (Added by Conv) Diabetes Mother's Sister 1 Family his tory of diabetes mellitus - (Added by TW Conv) Hypertension Mother's Sister 2 Family his tory of hypertension - (Added by TW Conv) Relation Name Status Comments Father Maternal Grandmother Mother Alive Mother's Brother 1 Mother's Brother 2 Mother's Sister 1 Mother's Sister 2 Social History Tobacco Use Types Packs/Day Years Used Date Smoking Tobacco: Never Smokeless Tobacco: Never Tobacco Cessation:Counseling Given: Not Answered Alcohol Use Standard Drinks/Week Comments No 0 (1 standard drink = 0.6 oz pur e alcohol) AUDIT-C Answer Date Recorded Q1: How often do you have a drink containing alcohol? Never 09/10/2024 Q2: How many drinks containi ng alcohol do you have on a typical day when you are drinking? Patient does not drink Q3: How often do you have si x or more drinks on one occasion? 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 Not on file Not on file Not on file Last Filed Vital Signs Vital Sign Reading Time Taken Comments Blood Pressure 100/60 03/27/2025 8:57 AM CDT Pulse 82 03/27/2025 8:57 AM CDT Temperature 36.1 C (96.9 F) 03/27/2025 8:57 AM CDT Respiratory Rate 16 03/27/2025 8:57 AM CDT Oxygen Saturation 98% 03/27/2025 8:57 AM CDT Inhaled Oxygen Concentration - - Weight 88 kg (194 lb) 03/27/2025 8:57 AM CDT Height 175.3 cm (5' 9) 03/27/2025 8:57 AM CDT Body Mass Index 28.65 03/27/2025 8:57 AM CDT Plan of Treatment Upcoming Encounters Date Type Department Care Team (Late st Contact Info) Description 08/04/2025 9:30 AM TWIST MAKER Hospital Encounter [facility] [address] [place] [address] Teto Mtz MD [address] [facility] [address] [place] [address] 08/04/2025 9:30 AM TWIST MAKER - 08/04/2025 10:00 AM TWIST MAKER Surgery [address] [address] Teto Mtz MD [address] [facility] [address] [address] COLONOSCOPY Scheduled Procedures Name Priority Associated Diagnoses Date/Ti me COLONOSCOPY Encounter for screening colonoscopy 08/04/2025 9:30 AM TWIST MAKER Health Maintenance Due Date Last Done Comments Hepatitis C Screening 1970 Prostate Cancer Screening-PSA 1970 Hepatitis B Screening 1988 Regular Well Visit/Exam 18-64 1988 Colon Cancer Screening-Colonoscopy 07/16/2025 Postponed from 1970 (Patient declined, but will receive in the future) Zoster Vaccine (1 of 2) 09/18/2025 Post poned from 2020 (Insurance / Financial) Covid-19 Vaccine ( season) 2026 05/13/2023, 06/03/2021, 12/14/2020, Additional history exists Postponed from 03/17/2025 (Patient declined, but will receive in the future) Depression Screening 03/27/2026 03/27/2025, 09/19/19 25 DTaP/Tdap/Td Vaccine (3 - Td or Tdap) 02/23/2031 02/23/2021, 07/17/2011 Influenza Vaccine Completed 05/19/2025, , 05/13/2023, Additional history exists Pneumococcal vaccine <65 Aged Out No longer eligible based on patient's age to complete this topic Medical Devices Implanted Type Area Cae Engineer Device Identifier Shelf Expiration Date Model / Serial / Lot [employer] [id number] Achilles Speedbridge [employer] Midsubstance System Fixation - [id number] Implanted:Qty: 1 on 05/27/2020 by Rajan Valentin MD at [facility] Right: Heel [employer] 01/14/2024 [id number] / / [id number] Insurance [facility] [id number] [facility] [id number] [facility] FEDERAL Member Subscriber Plan / Payer (Ef fective 2016-Present) Name:Jesse Magana V Relation to Subscriber:Spouse Name:MECHE SILVESTRE Date of :1977 Address: [address] [place] [id number] Payer ID:[id number] (NAIC) Group ID:[id number] Type:[facility] Address: [address] [place] [id number] Care Teams Briquetting Machine Operator Relationship Specialty Start Date End Date Brenton Romero MD [address] [place] [id number] PCP - General Family Medicine 09/18/24 Anjelica Yepez MD [address] [place] [address] [address] CHRIST[address]SON [address] [address] Consulting Physician Neurology 03/27/25
[2025-07-16 09:38] LABS: Hematocrit 48.1 % (42.0-52.0); Hemoglobin 15.8 g/dL (14.0-18.0); Immature Granulocyte Percent A 0.1 % (0-0.5); Lymphocytes Absolute Auto 2.05 K/mm3 (0.9-3.2); Mean Corpuscular HGB Conc 32.8 g/dl (32-36); Mean Corpuscular Hemoglobin 32.0 pg (26-34); Mean Corpuscular Volume 97.4 fl (80-100); Nucleated Red Blood Cells Absolute Auto 0.000 K/mm3 (0.0-0.012); Nucleated Red Blood Cells Perc 0.0 % (0.0-0.2); Platelet Count Result 262 k/mm3 (150-375); Red Blood Count 4.94 M/mm3 (4.6-6.20); White Blood Count 7.4 K/mm3 (4.5-10.0)
[2025-07-16 09:48] LABS: Hemoglobin A1C 5.5 % (<5.7)
[2025-07-16 09:55] LABS: Alanine Aminotransferase 27 U/L (6-50); Albumin Level 4.3 g/dL (3.5-5.1); Alkaline Phosphatase 81 U/L (38-126); Anion Gap 5 mmol/L (4-12); Aspartate Amino Transferase 34 U/L (17-59); Bilirubin,Total 0.9 mg/dL (0.2-1.3); Blood Urea Nitrogen 13 mg/dL (9-20); Calcium 9.7 mg/dL (8.4-10.2); Carbon Dioxide 33 mmol/L (22-30); Chloride 101 mmol/L (98-107); Cholesterol 202 mg/dL (0-200); Estimated Glomerular Filt Rate > 60; Glucose 104 mg/dL (65-110); HDL Direct 43 mg/dL; Potassium 3.7 mmol/L (3.4-5.0); Sodium 139 mmol/L (137-145); Total Protein 8.5 g/dL (6.3-8.2); Triglycerides 65 mg/dL (<150)
[2025-07-16 10:27] LABS: Hepatitis B Surface Antigen Negative (Negative)
[2025-07-16 10:29] LABS: Prostate Specific Antigen 1.4 ng/mL (< OR = 4.0)
[2025-07-16 10:44] LABS: Hepatitis B Surface Anti Res Negative
[2025-07-17 10:08] LABS: Hep B Core Ab, Total Negative (Negative)
== END 2025-07-16 08:51 | disposition home or self-care (01) ==
PROVIDERS: PCP Internal Medicine; Visit Provider Family Medicine
DX: I10 Essential (primary) hypertension (principal); Z11.59 Encounter for screening for other viral diseases; Z12.5 Encounter for screening for malignant neoplasm of prostate; R73.03 Prediabetes
CPT/HCPCS: 36415; 80053; 80061; 83036; 84153; 85025; 86704; 86706; 86803; 87340; G0103